=== PATIENT | male | born 1985 | race Caucasian/White ===

== ENCOUNTER 2020-06-10 07:54 | Inpatient (IN) | payer OTHER ==
[~2020-06-10] VITALS: Ht 185.4 cm; Wt 86.2 kg
[2020-06-10 08:40] LABS: HEMOGLOBIN 16.6 gm/dl (14.0-17.5); RED BLOOD COUNT 5.66 M/UL (4.20-5.50); WHITE BLOOD COUNT 9.6 K/UL (4.5-11.0)
[2020-06-10 09:13] LABS: BUN/CREATININE RATIO 30 (0-10)
[2020-06-10 11:25] LABS: BUN/CREATININE RATIO 32 (0-10)
[2020-06-10 14:42] LABS: BUN/CREATININE RATIO 33 (0-10)
[2020-06-10] MEDS ORDERED: SERTRALINE HCL50 MG PO (16:50)
[2020-06-10] MEDS ORDERED: AMOXICILLIN875 MG PO (16:50)
[2020-06-10] MEDS ORDERED: LISINOPRIL10 MG PO (16:51)
[2020-06-10] MEDS ORDERED: HUMALOG100 UNIT/3 SC (16:55)
[2020-06-10 18:21] LABS: BUN/CREATININE RATIO 29 (0-10)
[2020-06-10 23:31] LABS: BUN/CREATININE RATIO 26 (0-10)
--- NOTE | 2020-06-11 05:36 | NUR ---
0020 DR LEWISYEL AWARE OF CURRENT K LEVEL AND ELEVATED BP. PROTOCOL FOR K REPLACEMENT ORDERED, SEE MAR FOR PRN HYPERTENSION MED.
[2020-06-11 10:57] LABS: HEMOGLOBIN 15.9 gm/dl (14.0-17.5); RED BLOOD COUNT 5.45 M/UL (4.20-5.50); WHITE BLOOD COUNT 9.8 K/UL (4.5-11.0)
[2020-06-11 11:54] LABS: BUN/CREATININE RATIO 25 (0-10)
[2020-06-11 18:47] LABS: BUN/CREATININE RATIO 18 (0-10)
[2020-06-12 05:34] LABS: BUN/CREATININE RATIO 13 (0-10)
[2020-06-12] MEDS ORDERED: LANTUS INS100 UTS/M1 SC (10:11)
[2020-06-12] MEDS ORDERED: HUMALOG 10100 UNITS/ SC (10:11)
--- NOTE | 2020-06-12 19:02 | NUR ---
SPOKE TO DR IRWIN REGARDING PT POTASSIUM LEVEL. PER DR IRWIN OKAY TO DC PT NOW AND "INSTRUCT PT TO EAT SOME BANANAS."
--- NOTE | 2020-06-12 19:46 | NUR ---
PT AWARE OF NEED FOR INTAKE IN POTASSIUM. PT TAKEN TO CAR VIA WHEELCHAIR, PT AMBULATORY TO THE CAR WITHOUT DIFFICULTY. PT DC'D HOME WITH .
== END 2020-06-12 19:50 | disposition home or self-care (01) | DRG 639 ==
LOC: ER1 07:54 → CDU 10:00 → CCU 15:45
PROVIDERS: Emergency Medicine; Physician Assistant Medical; ADMIT Internal Medicine
DX: E10.10 Type 1 diabetes mellitus with ketoacidosis without coma (principal); I10 Essential (primary) hypertension; F41.9 Anxiety disorder, unspecified; E87.6 Hypokalemia; Z79.4 Long term (current) use of insulin
CPT/HCPCS: 36415; 36600; 80048; 80053; 81001; 82009; 82550; 82553; 82803; 82962; 83036; 83605; 83690; 83735; 83874; 84132; 84484; 85025; 87040; 93005; 96374; 99285; J0360; J1650; J2405; J2550; J3480; J7030; U0002